=== PATIENT | female | born 1975 | race Caucasian/White ===

== ENCOUNTER 2016-11-02 08:45 | Day surgery (SDC) | payer BC ==
[~2016-11-02] VITALS: Ht 167.6 cm; Wt 57.6 kg
[~2016-11-02 08:45] MED LIST: NORCO 5/3251 TABLET PO; ZOFRAN8 MG PO
[2016-11-02 09:38] VITALS: BP 120/70
[2016-11-02] MEDS ORDERED: NORCO 5/3251 TABLET PO (13:10)
[2016-11-02 15:05] VITALS: BP 122/72
[2016-11-02 15:58] VITALS: BP 123/78
== END 2016-11-02 15:59 | disposition home or self-care (01) ==
LOC: SDC 08:45
DX: D24.2 Benign neoplasm of left breast (principal)
CPT/HCPCS: 88307; J0690; J1100; J2405; J3010; Q0175; S0020